=== PATIENT | male | born 1995 | race African-American/Black ===

== ENCOUNTER 2018-12-23 17:55 | Emergency (ER) | payer SELFPAY ==
[~2018-12-23] VITALS: Ht 175.3 cm; Wt 122.0 kg
[2018-12-24] MEDS ORDERED: ACETAMINOPHEN 325MG TABLET PO ONE (00:30)
[2018-12-24 01:04] VITALS: BP 156/82
== END 2018-12-24 01:07 | disposition home or self-care (01) ==
LOC: ER 17:55
DX: H57.11 Ocular pain, right eye (principal)
CPT/HCPCS: 99283